=== PATIENT | male | born 1955 | race Caucasian/White ===

== ENCOUNTER 2020-08-22 12:17 | Emergency (ER) | payer SELFPAY ==
[~2020-08-22] VITALS: Ht 170 cm; Wt 100.0 kg
[~2020-08-22 12:17] MED LIST: HYDR1TAB66 PO; SULF1TAB38 PO
[2020-08-22 12:54] LABS: BASOPHILS # (AUTO) 0.1 10^3/uL (0.0-0.1); BASOPHILS % (AUTO) 1 % (0-10); EOSINOPHILS # (AUTO) 0.3 10^3/uL (0.0-0.3); EOSINOPHILS % (AUTO) 3 % (0-10); HEMATOCRIT 42 % (40-54); HEMOGLOBIN 14.7 g/dL (13.3-17.7); LYMPHOCYTES % (AUTO) 23 % (12-44); MEAN CORPUSCULAR HEMOGLOBIN 30 pg (25-34); MEAN CORPUSCULAR HGB CONC 35 g/dL (32-36); MEAN CORPUSCULAR VOLUME 87 fL (80-99); MEAN PLATELET VOLUME 10.3 fL (9.0-12.2); MONOCYTES # (AUTO) 0.5 10^3/uL (0.0-1.0); MONOCYTES % (AUTO) 6 % (0-12); NEUTROPHILS # (AUTO) 5.8 10^3/uL (1.8-7.8); NEUTROPHILS % (AUTO) 67 % (42-75); PLATELET COUNT 298 10^3/uL (130-400); WHITE BLOOD COUNT 8.8 10^3/uL (4.3-11.0)
--- NOTE | 2020-08-22 12:54 | ED Cardiac General ---
History of Present Illness General Chief Complaint: Cardiac/General Problems Stated Complaint: HIGH BP Nursing Triage Note: SENT OVER FROM URGENT CARE WITH HIGH BP. PT STATES HE HAS NOT TAKEN HIS MEDS FOR YEARS. ON THURSDAY HIS SPEECH WAS "FUNKY" SO DECIDED TO BE SEEN TODAY. DENIES CP OR SOA AT THIS TIME. Source: patient Exam Limitations: no limitations (CARLOS RICHARDS APRN) History of Present Illness Date Seen by Provider: Aug 22, 2020 Time Seen by Provider: 12:30 Initial Comments Patient is a 65-year-old male who presents to the ER via POV with complaints of high blood pressure. States that he went to the urgent care for wellness check and alterations in speech that started Thursday. He was referred to the ER due to systolic blood pressure in the 200's. States that he has had elevated blood pressure for several years and was prescribed lisinopril approximate [address] Webber. States that he never took it at that time. Verbalized that he was warned if he does not get his blood pressure under control he "would be 6ft under". States his blood pressure at that time was running 200s over 100s. States he has not been evaluated by primary care provider in several years. He currently has no complaints at this time. States that he did notice his speech seemed a bit altered "words would run on top of each other" which started Thursday, however states this is cleared up. Denies dizziness, vision changes, headache, chest pain, shortness of breath, nausea/vomiting/abdominal pain, weakness, loss of balance, slurred speech. No fever, chills, cough, no ill contacts. (CARLOS RICHARDS TABLE GAMES SUPERVISOR) Allergies and Home Medications Allergies Coded Allergies: No Known Drug Allergies (Unverified , 05/03/10) Home Medications Losartan/Hydrochlorothiazide 1 Each Tablet, 1 EACH PO DAILY Prescribed by: CARLOS RICHARDS on 08/22/20 1343 Patient Home Medication List Home Medication List Reviewed: Yes (CARLOS RICHARDS APRN) Review of Systems Review of Systems Constitutional: no symptoms reported EENTM: See HPI Respiratory: No Symptoms Reported Cardiovascular: No Symptoms Reported Gastrointestinal: No Symptoms Reported Genitourinary: No Symptoms Reported Musculoskeletal: no symptoms reported Skin: no symptoms reported Psychiatric/Neurological: No Symptoms Reported Endocrine: No Symptoms Reported Hematologic/Lymphatic: No Symptoms Reported (CARLOS RICHARDS APRN) Past Bxgvoxi-Lwrrze-Ykeute Hx Past Medical History Reproductive Disorders: No (CARLOS RICHARDS APRN) Physical Exam Vital Signs Vital Signs - First Documented 08/22/20 12:17 Temp 36.1 Pulse 83 Resp 16 B/P (MAP) 235/127 (163) Pulse Ox 96 O2 Delivery Room Air (KRISS CANTRELL MD) Vital Signs Capillary Refill : Less Than 3 Seconds (CARLOS RICHARDS APRN) Height, Weight, BMI Height: '" Weight: lbs. oz. kg; 34.00 BMI Method: General Appearance: No Apparent Distress, WD/WN HEENT: PERRL/EOMI, Normal ENT Inspection, Pharynx Normal, Moist Mucous Membranes Neck: Full Range of Motion, Normal Inspection, Non Tender, Supple; No Carotid Bruit, No JVD, No Thyromegaly Respiratory: Lungs Clear, Normal Breath Sounds, No Accessory Muscle Use, No Respiratory Distress Cardiovascular: Regular Rate, Rhythm, No Edema, No Murmur, Normal Peripheral Pulses Gastrointestinal: Normal Bowel Sounds, No Organomegaly, No Pulsatile Mass, Non Tender, Soft Extremity: Normal Inspection, Normal Range of Motion, Non Tender Neurologic/Psychiatric: Alert, Oriented x3, No Motor/Sensory Deficits, Normal Mood/Affect, central office mechanic II-XII Norm as Tested; No Aphasia, No Disoriented, No Facial Droop, No Motor Weakness, No Sensory Deficit Skin: Normal Color, Warm/Dry (CARLOS RICHARDS APRN) Progress/Results/Core Measures Results/Orders Lab Results Laboratory Tests Test 08/22/20 12:25 08/22/20 13:09 Range/Units White Blood Count 8.8 4.3-11.0 10^3/uL Red Blood Count 4.88 4.30-5.52 10^6/uL Hemoglobin 14.7 13.3-17.7 g/dL Hematocrit 42 40-54 % Mean Corpuscular Volume 87 80-99 fL Mean Corpuscular Hemoglobin 30 25-34 pg Mean Corpuscular Hemoglobin Concent 35 32-36 g/dL Red Cell Distribution Width 12.9 10.0-14.5 % Platelet Count 298 130-400 10^3/uL Mean Platelet Volume 10.3 9.0-12.2 fL Immature Granulocyte % (Auto) 0 % Neutrophils (%) (Auto) 67 42-75 % Lymphocytes (%) (Auto) 23 12-44 % Monocytes (%) (Auto) 6 0-12 % Eosinophils (%) (Auto) 3 0-10 % Basophils (%) (Auto) 1 0-10 % Neutrophils # (Auto) 5.8 1.8-7.8 10^3/uL Lymphocytes # (Auto) 2.0 1.0-4.0 10^3/uL Monocytes # (Auto) 0.5 0.0-1.0 10^3/uL Eosinophils # (Auto) 0.3 0.0-0.3 10^3/uL Basophils # (Auto) 0.1 0.0-0.1 10^3/uL Immature Granulocyte # (Auto) 0.0 0.0-0.1 10^3/uL Sodium Level 141 135-145 MMOL/L Potassium Level 3.2 L 3.6-5.0 MMOL/L Chloride Level 100 98-107 MMOL/L Carbon Dioxide Level 29 21-32 MMOL/L Anion Gap 12 5-14 MMOL/L Blood Urea Nitrogen 14 7-18 MG/DL Creatinine 1.62 H 0.60-1.30 MG/DL Estimat Glomerular Filtration Rate 43 BUN/Creatinine Ratio 9 Glucose Level 105 70-105 MG/DL Calcium Level 9.5 8.5-10.1 MG/DL Corrected Calcium 9.4 8.5-10.1 MG/DL Total Bilirubin 1.0 0.1-1.0 MG/DL Aspartate Amino Transf (AST/SGOT) 26 5-34 U/L Alanine Aminotransferase (ALT/SGPT) 25 0-55 U/L Alkaline Phosphatase 65 40-136 U/L Total Protein 7.5 6.4-8.2 GM/DL Albumin 4.1 3.2-4.5 GM/DL Triglycerides Level 151 H <150 MG/DL Cholesterol Level 200 < 200 MG/DL LDL Cholesterol Direct 153 H 1-129 MG/DL VLDL Cholesterol 30 5-40 MG/DL HDL Cholesterol 39 L 40-60 MG/DL Urine Color IVANA H Urine Clarity CLEAR Urine pH 6.0 5-9 Urine Specific [place] >=1.030 1.016-1.022 Urine Protein 2+ H NEGATIVE Urine Glucose (UA) NEGATIVE NEGATIVE Urine Ketones NEGATIVE NEGATIVE Urine Nitrite NEGATIVE NEGATIVE Urine Bilirubin NEGATIVE NEGATIVE Urine Urobilinogen 0.2 < = 1.0 MG/DL Urine Leukocyte Esterase NEGATIVE NEGATIVE Urine RBC (Auto) 3+ H NEGATIVE Urine RBC 25-50 H /HPF Urine WBC NONE /HPF Urine Crystals PRESENT H /LPF Urine Amorphous Sediment MOD ROBBIE URATES H /LPF Urine Bacteria NEGATIVE /HPF Urine Casts PRESENT /LPF Urine Hyaline Casts 0-2 H /LPF Urine Mucus SMALL H /LPF Urine Culture Indicated NO (KRISS CANTRELL MD) Medications Given in ED Current Medications Medications Dose Ordered Sig/Anel Route Start Time Stop Time Status Last Admin Dose Admin Hydralazine HCl 10 mg ONCE ONCE IV 08/22/20 13:00 08/22/20 13:01 DC 08/22/20 13:11 10 MG Hydralazine HCl 10 mg ONCE ONCE IV 08/22/20 14:15 08/22/20 14:16 DC 08/22/20 14:11 10 MG (KRISS CANTRELL MD) Vital Signs/I&O 08/22/20 08/22/20 12:17 14:30 Temp 36.1 Pulse 83 79 Resp 16 16 B/P (MAP) 235/127 (163) 183/92 Pulse Ox 96 98 O2 Delivery Room Air Room Air (KRISS CANTRELL MD) Blood Pressure Mean: 163 Progress Progress Note : Progress Note Patient examined and in no acute distress. EKG SR with no acute ST segment changes. Will obtain basic labs, non fasting lipid panel, CXR, and CT head to ev aluate for any target organ damage d/t chronically elevated blood pressure. Orders placed for Hydralazine 10mg IVP. States he use to take Lisinopril 20mg PO daily but stopped due to cough. NIH-0. No focal or gross neurological deficits identified on exam. Labs reviewed. CBC unremarkable. Chem panel shows slight elevation in creat- 1.62, no baseline available for comparison. GFR-43, (+) microscopic hematuria. Reviewed plan to have close follow up with Dr. Olea next week. Called office and staff to call patient with date/time. Patient will need additional workup and would benefit from Echocardiogram and Carotid duplex. Reviewed that he is very high risk for stroke, [place], and renal failure due to severity of hypertension. Thoroughly reviewed DASH diet/dietary modifications. Will start on Losartan/Hctz 50-12.5mg daily. He continues to deny any physical symptoms through his ED course. Blood pressure evaluated after one hour of Hydralazine 10mg IVP. BP-190/106. Will give additional dose of Hydralazine 10mg IVP and re-evaluate. Discussed starting his BP medications today. Blood pressure at time of discharge 183/92. Continued to report no physical symptoms. Reviewed discharge POC and he is agreeable with plan. All questions answered. No concerns voiced. (CARLOS RICHARDS APRN) Initial ECG Impression Date: Aug 22, 2020 Initial ECG Impression Time: 12:26 Initial ECG Rate: 80 Initial ECG Rhythm: Normal Sinus Initial ECG Intervals: Normal Initial ECG Intervals LVH Initial ECG Impression: Nonspecific Changes Initial ECG Comparisson: No Previous ECG Available (CARLOS RICHARDS APRN) Diagnostic Imaging Diagonstic Imaging: Xray Plain Films/CT/US/NM/MRI: chest [facility] [place] [place] NAME: VIR[place] TAMAYO [facility] REC#: [id number] PT STATUS: REG ER : 1955 PHYSICIAN: CARLOS RICHARDS APRN ADMIT DATE: 08/22/20/ER Draft Date of Exam:08/22/20 CHEST PA/LAT (2 VIEW) INDICATION: Elevated blood pressure. TIME OF EXAM: 1:08 PM. COMPARISON: Correlation is made with the prior chest from 04/30/2010. FINDINGS: The heart size is normal. The pulmonary vascularity is unremarkable. The lungs are clear. No infiltrate, effusion, or pneumothorax is detected. IMPRESSION: No acute cardiopulmonary process is detected. Dictated on workstation # [id number] Dict: 08/22/20 1309 Trans: 08/22/20 1311 [id number] Interpreted by: SILVIA ELLISON MD Electronically signed by: Reviewed: Reviewed by Me Diagonstic Imaging: CT Plain Films/CT/US/NM/MRI: head Comments [facility] [place], [place] NAME: RAFFAELE TAMAYONIS Alfonso [facility] REC#: [id number] PT STATUS: REG ER : 1955 PHYSICIAN: CARLOS RICHARDS APRN ADMIT DATE: 08/22/20/ER Draft Date of Exam:08/22/20 CT HEAD WO-R/O STROKE INDICATION: Altered speech, possible stroke. TECHNIQUE: Multiple contiguous axial images were obtained through the brain without the use of intravenous contrast. Auto Exposure Controls were utilized during the CT exam to meet ALARA standards for radiation dose reduction. COMPARISON: There is no prior study for comparison. FINDINGS: There are no extra-axial fluid collections. No intracranial hemorrhage. No intracranial mass or mass effect. No midline shift. The ventricles are normal in size and position. There are no acute parenchymal abnormalities in the brain. There are patchy low-density changes throughout the deep white matter, likely representing chronic ischemic change. The calvarial windows are unremarkable. IMPRESSION: No acute hemorrhage or mass effect. Chronic changes in the deep white matter, likely due to chronic ischemic changes. No definite acute finding. Dictated on workstation # [id number] Dict: 08/22/20 1321 Trans: 08/22/20 1327 [id number] Interpreted by: STAR NEFF MD Electronically signed by: Reviewed: Reviewed by Me (CARLOS RICHARDS APRN) Departure Communication (Admissions) Time/Spoke to Consulting Phy: 13:[address] Olea office to schedule close follow up next week. Office to return call for date/time of appointment. (CARLOS RICHARDS APRN) Impression Primary Impression: Hypertension Additional Impression: Microscopic hematuria Disposition: 01 HOME, SELF-CARE Condition: Improved Departure-Patient Inst. Decision time for Depature: 14:29 (CARLOS RICHARDS TABLE GAMES SUPERVISOR) Referrals: RAN OLEA MD (PCP/Family) Primary Care Physician Patient Instructions: DASH Diet, High Blood Pressure Emergencies Add. Discharge Instructions: Plan: 1. Follow up with Dr. Olea next week. Office will call you with appointment date/time. 2. Take Losartan/HCTZ for your blood pressure daily as directed. Make sure you are drinking plenty of fluids. 3. Reduce salt intake. Avoid adding salt to your foods or choosing foods with high sodium when eating out. 4. Information regarding DASH diet is provided. 5. Return to ER if you develop any chest pain, weakness in one side of the body, changes in vision or speech, or any other new or concerning symptoms. All discharge instructions reviewed with patient and/or family. Voiced understanding. Scripts Losartan/Hydrochlorothiazide (Losartan-Hctz 50-12.5 mg Tab) 1 Each Tablet 1 EACH PO DAILY for 14 Days, #14 TAB 0 Refills Prov: CARLOS RICHARDS APRN 08/22/20 ATTENDING PHYSICIAN NOTE: I was physically present as attending physician in the emergency department during the care of this patient, but I was not directly involved in the decision making or delivery of care for this patient. (KRISS CANTRELL MD) CARLOS RICHARDS APRN Aug 22, 2020 12:54 KRISS CANTRELL MD Aug 22, 2020 18:32
[2020-08-22 12:58] LABS: ALBUMIN 4.1 GM/DL (3.2-4.5); POTASSIUM 3.2 MMOL/L (3.6-5.0)
[2020-08-22 12:59] LABS: CALCIUM 9.5 MG/DL (8.5-10.1)
[2020-08-22 13:00] LABS: TOTAL PROTEIN 7.5 GM/DL (6.4-8.2)
[2020-08-22] MEDS ORDERED: hydrALAZINE (APESOLINE) 20 MG/ML VIAL IV ONE ×2 (13:00→14:15)
[2020-08-22 13:04] LABS: CREATININE SERUM 1.62 MG/DL (0.60-1.30)
--- NOTE | 2020-08-22 13:11 | Diagnostic Imaging Report ---
INDICATION: Elevated blood pressure. TIME OF EXAM: 1:08 PM. COMPARISON: Correlation is made with the prior chest from 04/30/2010. FINDINGS: The heart size is normal. The pulmonary vascularity is unremarkable. The lungs are clear. No infiltrate, effusion, or pneumothorax is detected. IMPRESSION: No acute cardiopulmonary process is detected. Dictated by: Dictated on workstation # [id number]
[2020-08-22 13:16] LABS: BILIRUBIN,URINE NEGATIVE (NEGATIVE); CLARITY,URINE CLEAR; COLOR,URINE AMBER; GLUCOSE, URINE (UA) NEGATIVE (NEGATIVE); KETONES,URINE NEGATIVE (NEGATIVE); LEUKOCYTE ESTERASE ,URINE NEGATIVE (NEGATIVE); NITRITE,URINE NEGATIVE (NEGATIVE); PROTEIN,URINE 2+ (NEGATIVE)
[2020-08-22 13:27] LABS: AMORPHOUS SEDIMENT,UR MOD AMOR URATES /LPF; BACTERIA,URINE NEGATIVE /HPF; HYALINE CASTS, URINE 0-2 /LPF; RBC,URINE 25-50 /HPF
[2020-08-22] MEDS ORDERED: LISI20TA26 PO (13:27)
--- NOTE | 2020-08-22 13:28 | Diagnostic Imaging Report ---
INDICATION: Altered speech, possible stroke. TECHNIQUE: Multiple contiguous axial images were obtained through the brain without the use of intravenous contrast. Auto Exposure Controls were utilized during the CT exam to meet ALARA standards for radiation dose reduction. COMPARISON: There is no prior study for comparison. FINDINGS: There are no extra-axial fluid collections. No intracranial hemorrhage. No intracranial mass or mass effect. No midline shift. The ventricles are normal in size and position. There are no acute parenchymal abnormalities in the brain. There are patchy low-density changes throughout the deep white matter, likely representing chronic ischemic change. The calvarial windows are unremarkable. IMPRESSION: No acute hemorrhage or mass effect. Chronic changes in the deep white matter, likely due to chronic ischemic changes. No definite acute finding. Dictated by: Dictated on workstation # [id number]
[2020-08-22] MEDS ORDERED: LOSA1TAB20 PO (13:43)
[2020-08-22 14:30] VITALS: BP 183/92
== END 2020-08-22 14:30 | disposition home or self-care (01) ==
LOC: EDUNIT# 12:17 → ER 12:19
DX: I10 Essential (primary) hypertension (principal); R31.29 Other microscopic hematuria
CPT/HCPCS: 36415; 70450; 71046; 80053; 80061; 81000; 85025; 93005; 96374; 96376

== ENCOUNTER 2021-08-19 13:40 | Emergency (ER) | payer SELFPAY ==
[~2021-08-19] VITALS: Ht 170 cm; Wt 102.0 kg
[~2021-08-19 13:40] MED LIST changes: +LISI20TA26 PO; +LOSA1TAB20 PO
[2021-08-19 14:04] LABS: BASOPHILS # (AUTO) 0.1 10^3/uL (0.0-0.1); BASOPHILS % (AUTO) 1 % (0-10); EOSINOPHILS # (AUTO) 0.2 10^3/uL (0.0-0.3); EOSINOPHILS % (AUTO) 2 % (0-10); HEMATOCRIT 43 % (40-54); HEMOGLOBIN 14.7 g/dL (13.3-17.7); LYMPHOCYTES # (AUTO) 1.8 10^3/uL (1.0-4.0); LYMPHOCYTES % (AUTO) 16 % (12-44); MEAN CORPUSCULAR HEMOGLOBIN 30 pg (25-34); MEAN CORPUSCULAR HGB CONC 34 g/dL (32-36); MEAN CORPUSCULAR VOLUME 86 fL (80-99); MEAN PLATELET VOLUME 10.1 fL (9.0-12.2); MONOCYTES # (AUTO) 0.5 10^3/uL (0.0-1.0); MONOCYTES % (AUTO) 4 % (0-12); NEUTROPHILS # (AUTO) 8.6 10^3/uL (1.8-7.8); NEUTROPHILS % (AUTO) 76 % (42-75); PLATELET COUNT 284 10^3/uL (130-400); WHITE BLOOD COUNT 11.2 10^3/uL (4.3-11.0)
[2021-08-19 14:12] LABS: ALBUMIN 4.3 GM/DL (3.2-4.5); CHLORIDE 100 MMOL/L (98-107); POTASSIUM 3.3 MMOL/L (3.6-5.0); SODIUM 141 MMOL/L (135-145)
[2021-08-19 14:14] LABS: CALCIUM 9.7 MG/DL (8.5-10.1)
[2021-08-19 14:15] LABS: GLUCOSE 131 MG/DL (70-105); TOTAL PROTEIN 7.7 GM/DL (6.4-8.2)
[2021-08-19 14:16] LABS: CARBON DIOXIDE 30 MMOL/L (21-32); FIBRIN DEGRADATION PRODUCTS 0.4 UG/ML (0.00-0.49); INR 0.9 (0.8-1.4); PROTHROMBIN TIME PATIENT 12.8 SEC (12.2-14.7)
[2021-08-19 14:17] LABS: BILIRUBIN,TOTAL 1.5 MG/DL (0.1-1.0)
[2021-08-19 14:18] LABS: ALKALINE PHOSPHATASE 76 U/L (40-136); CREATININE SERUM 1.75 MG/DL (0.60-1.30); GFR ESTIMATED 43
--- NOTE | 2021-08-19 14:18 | ED Neurological Problem ---
General Chief Complaint: Neuro-Stroke Like Symptoms Stated Complaint: POSSIBLE STROKE Nursing Triage Note: PT AMB TO RM 6 PT STATES HE MAY HAVE HAD A STROKE THIS AM. PT STATES STARTED DROOLING FROM RT SIDE OF MOUTH,AND HAS R SIDED FACIAL DROOPING. PT STATES HAS SOME DIFF W SWALLOWING. DAUGHTER STATES HAD SOME SLURRING OF WORDS EARLIER THAT IS RESOLVING Source: patient, family (DAUGHTER) History of Present Illness Date Seen by Provider: Aug 19, 2021 Time Seen by Provider: 13:58 Initial Comments PT ARRIVES VIA POV FROM HOME WITH DAUGHTER AROUND 0800 THIS AM, DAUGHTER CAME BY TO SEE HIM, AND SHE NOTED THAT PT HAD SOME DROOLING FROM RIGHT SIDE OF MOUTH AND SOME SLURRED SPEECH PT DID HAVE SOME DIFFICULTY SWALLOWING, BUT ATE/DRANK LESS THAN 1 HOUR AGO--CLAIMS HE DID NOT HAVE ANY PROBLEMS SWALLOWING AT THAT TYIME DAUGHTER NOTED THAT HE WAS STUMBLING A LITTLE BIT DAUGHTER STATES SYMPTOMS HAVE IMPROVED, BUT NOT COMPLETELY RESOLVED NO DIZZINESS OR SYNCOPE NO FALLS NO HEADACHE NO VISION CHANGES NO PARESTHESIAS NO CHEST PAIN OR PALPITATIONS NO SHORTNESS OF BREATH NO GI SYMPTOMS NO FEVER OR RECENT ILLNESS PT HAS HISTORY OF TIA ABOUT A YEAR AGO, ALSO HAS HISTORY OF HTN PT WAS PRESCRIBED [facility]AN AT THAT TIME BUT PT NEVER TOOK IT AND HAS NEVER FOLLOWED UP WITH ANYONE PCP: NONE Allergies and Home Medications Allergies Coded Allergies: No Known Drug Allergies (Unverified , 05/03/10) Patient Home Medication List Losartan/Hydrochlorothiazide (Losartan-Hctz 50-12.5 mg Tab) 1 Each Tablet, 1 EACH PO DAILY Prescribed by: CARLOS RICHARDS on 08/22/20 1343 Review of Systems Review of Systems Constitutional: no symptoms reported Eyes: No Symptoms Reported Ears, Nose, Mouth, Throat: see HPI Respiratory: no symptoms reported Cardiovascular: no symptoms reported Gastrointestinal: no symptoms reported Genitourinary: no symptoms reported Musculoskeletal: see HPI Skin: no symptoms reported Psychiatric/Neurological: See HPI Endocrine: No Symptoms Reported Hematologic/Lymphatic: No Symptoms Reported Past Nxglwqe-Nxoqym-Vyqmrk Hx Past Medical History Surgeries: Yes (04/2010-LITHOTRIPSY/CYSTOSCOPY) Renal Respiratory: No Cardiac: Yes Hypertension Neurological: Yes TIA Reproductive Disorders: No Genitourinary: No Gastrointestinal: No Musculoskeletal: No Endocrine: No HEENT: No Cancer: No Psychosocial: No Integumentary: No Blood Disorders: No Physical Exam Vital Signs Vital Signs - First Documented 08/19/21 08/19/21 08/19/21 13:40 14:31 14:34 Temp 37.1 Pulse 75 Resp 18 B/P (MAP) 207/114 (145) Pulse Ox 98 O2 Delivery Room Air FiO2 21 Capillary Refill : Less Than 3 Seconds Height, Weight, BMI Height: '" Weight: lbs. oz. kg; 35.00 BMI Method: General Appearance: WD/WN, no apparent distress HEENT: PERRL/EOMI, TMs normal, pharynx normal, other (RIGHT FACIAL DROOP. 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 SPEECH SLIGHTLY SLURRED. SLIGHT RIGHT ARM AND LEG DRIFT. GAIT IS NORMAL. NORMAL FINGER TO NOSE AND HEEL TO SHAH) Crainal Nerves: normal hearing, PERRL Coordination/Gait: normal finger to nose, normal gait Motor/Sensory: no sensory deficit, pronator drift (R), weak motor strength RLE Skin: normal color, warm/dry Stroke NIH Stroke Scale Assessment Select: Initial Level of Consciousness: 0=Alert (0), Level of Consciousness- Questions: 0=Answers both month/age (0), LOC Commands: 0=Performs both tasks (0), Visual Peterson: 0=No visual loss (0), Facial Movement (Facial Paresis): 1=Minor paralysis (1), Motor Function-Arms Right: 1=Drift (1), Motor F unction-Arms Left: 0=No drift (0), Motor Function-Legs Right: 1=Drift (1), Motor Function-Legs Left: 0=No drift (0), Limb Ataxia: 0=Absent (0), Sensory: 0=Normal:no loss (0), Best Language: 0=No aphasia (0), Dysarthria: 1=Mild to moderate loss (1), Extinction & Inattention: 0=No abnormality (0), Total: 4 Stroke Thrombolytic Exclusion Age 18 or Over: Yes Acute intenal hemorrhage: Yes History of CVA: Yes Uncontrolled Coagulation Defec: No Intracranial Hemorrhage: Yes Severe Hypertension: Yes GI or Bleed: No Subarachnoid Hemorrhage: No Intracranial Neoplasm/Aneurysm: No Oral Anticoagulants: No Surgery or Trauma: No Puncture of Non-Compressible V: No Recent CPR: No Diabetic Hemorrhagic Retinopat: No Organ Biopsy: No Recent Obstetric Delivery: No Glucose: No Significant Hepatic Dysfunctio: No NIH Stoke Scale >22: No Bacterial Endocarditis: No Pericarditis: No Improving Symptoms: Yes Platelets: No TPA Contraindication: Yes IV - TPa Received IV - TPa Procedure Performed?: No (ONSET IS UNKNOWN AND PT HAS INTRACRANIAL HEMORRHAGE ) Progress/Results/Core Measures Results/Orders Lab Results Laboratory Tests Test 08/19/21 13:53 08/19/21 14:29 Range/Units White Blood Count 11.2 H 4.3-11.0 10^3/uL Red Blood Count 4.99 4.30-5.52 10^6/uL Hemoglobin 14.7 13.3-17.7 g/dL Hematocrit 43 40-54 % Mean Corpuscular Volume 86 80-99 fL Mean Corpuscular Hemoglobin 30 25-34 pg Mean Corpuscular Hemoglobin Concent 34 32-36 g/dL Red Cell Distribution Width 13.2 10.0-14.5 % Platelet Count 284 130-400 10^3/uL Mean Platelet Volume 10.1 9.0-12.2 fL Immature Granulocyte % (Auto) 0 % Neutrophils (%) (Auto) 76 H 42-75 % Lymphocytes (%) (Auto) 16 12-44 % Monocytes (%) (Auto) 4 0-12 % Eosinophils (%) (Auto) 2 0-10 % Basophils (%) (Auto) 1 0-10 % Neutrophils # (Auto) 8.6 H 1.8-7.8 10^3/uL Lymphocytes # (Auto) 1.8 1.0-4.0 10^3/uL Monocytes # (Auto) 0.5 0.0-1.0 10^3/uL Eosinophils # (Auto) 0.2 0.0-0.3 10^3/uL Basophils # (Auto) 0.1 0.0-0.1 10^3/uL Immature Granulocyte # (Auto) 0.1 0.0-0.1 10^3/uL Prothrombin Time 12.8 12.2-14.7 SEC INR Comment 0.9 0.8-1.4 Activated Partial Thromboplast Time 29 24-35 SEC D-Dimer 0.40 0.00-0.49 UG/ML Sodium Level 141 135-145 MMOL/L Potassium Level 3.3 L 3.6-5.0 MMOL/L Chloride Level 100 98-107 MMOL/L Carbon Dioxide Level 30 21-32 MMOL/L Anion Gap 11 5-14 MMOL/L Blood Urea Nitrogen 11 7-18 MG/DL Creatinine 1.75 H 0.60-1.30 MG/DL Estimat Glomerular Filtration Rate 43 BUN/Creatinine Ratio 6 Glucose Level 131 H 70-105 MG/DL Glucometer 129 H 70-110 MG/DL Calcium Level 9.7 8.5-10.1 MG/DL Corrected Calcium 9.5 8.5-10.1 MG/DL Total Bilirubin 1.5 H 0.1-1.0 MG/DL Aspartate Amino Transf (AST/SGOT) 18 5-34 U/L Alanine Aminotransferase (ALT/SGPT) 15 0-55 U/L Alkaline Phosphatase 76 40-136 U/L Troponin I < 0.028 <0.028 NG/ML Total Protein 7.7 6.4-8.2 GM/DL Albumin 4.3 3.2-4.5 GM/DL My Orders Orders - DINA MCNEILL DO Cbc With Automated Diff (08/19/21 13:58) Protime With Inr (08/19/21 13:58) Partial Thromboplastin Time (08/19/21 13:58) Comprehensive Metabolic Panel (08/19/21 13:58) Fibrin Degradation Products (08/19/21 13:58) Troponin I Kal[place] (08/19/21 13:58) Ua Culture If Indicated (08/19/21 13:58) Chest 1 View, Ap/Pa Only (08/19/21 13:58) Ekg Tracing (08/19/21 13:58) Nothing By Mouth (08/19/21 Lunch) Accucheck Stat ONCE (08/19/21 13:58) Ed Iv/Invasive Line Start (08/19/21 13:58) Ed Iv/Invasive Line Start (08/19/21 13:58) Vital Signs Stroke Patient Q15M (08/19/21 13:58) Ct Head Wo-R/O Stroke (08/19/21 13:58) O2 (08/19/21 13:58) Intake & Output 06,14,22 (08/19/21 13:58) Monitor-Rhythm Ecg Trace Only (08/19/21 13:58) Dysphagia Screening Tool [id number] (08/19/21 13:58) Lipid Panel (08/20/21 06:00) Labetalol Injection (Normodyne Injection (08/19/21 14:45) Vital Signs/I&O 08/19/21 08/19/21 08/19/21 08/19/21 13:40 14:30 14:31 14:34 Temp 37.1 Pulse 75 80 80 Resp 18 12 12 B/P (MAP) 207/114 (145) 240/126 221/121 Pulse Ox 98 96 95 95 O2 Delivery Room Air Room Air FiO2 21 Blood Pressure Mean: 145 Progress Progress Note : Progress Note STROKE ACTIVATION INITIATED. GIVEN LABETALOL FOR HTN Initial ECG Impression Date: Aug 19, 2021 Initial ECG Impression Time: 14:05 Initial ECG Rate: 79 Initial ECG Rhythm: Normal Sinus (IVCD) Initial ECG Impression: Nonspecific Changes Diagnostic Imaging Comments CT HEAD--INTRACRANIAL BLEED IN BASAL GANGLIA, 17 MM DIAMETER. NO MIDLINE SHIFT. TYPICAL APPEARANCE OF HYPERTENSIVE HEMORRHAGE. PER RADIOLOGIST VIA PHONE AT 1444, AND PER DICTATED REPORT AT 1456 COMPARISON: Correlation is made with prior head CT from 08/22/2020. FINDINGS: Patient has developed an area of hyperdensity in the left basal ganglia measuring 17 mm in size consistent with acute intraparenchymal hematoma. No other areas of hemorrhage are detected. Ventricular size is stable. Patchy areas of low attenuation in the periventricular and subcortical white matter is noted consistent with chronic microvascular ischemia. There is no midline shift. No sulcal effacement is seen. IMPRESSION: 1. Acute intraparenchymal hematoma in the left basal ganglia, perhaps hypertensive bleed. No extra-axial hemorrhage is detected. 2. Findings of chronic microvascular ischemia. CXR--PER RADIOLOGIST REPORT AT 1456 Findings: Lungs are clear. No failure, effusion or pneumothorax. Impression: No acute-appearing abnormality. Reviewed: Reviewed by Me, Discussed w/Radiologist Departure Communication (Admissions) 1445--CALLED [facility], AND [facility]. THEY WILL CALL BACK. 1457--SPOKE WITH DR. BRANDON, NEUROSURGEON, ADVISES TO TRANSFER TO ER, AND SHE WILL SEE PT IN CONSULT/ADMIT TO HOSPITALIST. 1500--SPOKE WITH DR. LARRY GRIFFITHS, ER PHYSICIAN. ACCEPTS PT FOR TRANSFER. ER STAFF CONTACTING [facility] FOR TRANSPORT, WILL SEND BY AIR IF NO GROUND TRANSPORT AVAILABLE Impression Primary Impression: Hemorrhagic stroke Additional Impressions: MALIGNANT HTN Non-compliance Disposition: XFER SHT-TRM HOSP Condition: Stable/Unchanged Transfer Transfer Reason: Exceeds level of care (NEUROLOGY AND NEUROSURGERY ) [facility] MD Departure-Patient Inst. Referrals: NO,LOCAL PHYSICIAN (PCP/Family) Primary Care Physician DINA MCNEILL DO Aug 19, 2021 14:18
[2021-08-19 14:19] LABS: BUN/CREATININE RATIO 6
[2021-08-19 14:21] LABS: ALANINE AMINOTRANSFERASE 15 U/L (0-55)
--- NOTE | 2021-08-19 14:28 | Diagnostic Imaging Report ---
Indication: Drooling, facial droop. Findings: Lungs are clear. No failure, effusion or pneumothorax. Impression: No acute-appearing abnormality. Dictated by: Dictated on workstation # [id number]
[2021-08-19 14:30] VITALS: BP 240/126
[2021-08-19 14:37] LABS: BILIRUBIN,URINE NEGATIVE (NEGATIVE); CLARITY,URINE CLEAR; COLOR,URINE YELLOW; GLUCOSE, URINE (UA) NEGATIVE (NEGATIVE); KETONES,URINE NEGATIVE (NEGATIVE); LEUKOCYTE ESTERASE ,URINE NEGATIVE (NEGATIVE); NITRITE,URINE NEGATIVE (NEGATIVE); PROTEIN,URINE 1+ (NEGATIVE)
[2021-08-19] MEDS ORDERED: LABETALOL HCL 20 MG/4 ML VIAL IV ONE ×2 (14:45→15:15)
--- NOTE | 2021-08-19 14:52 | Diagnostic Imaging Report ---
PROCEDURE: CT head wo r/o stroke. TECHNIQUE: Multiple contiguous axial images were obtained through the brain without the use of intravenous contrast. Auto Exposure Controls were utilized during the CT exam to meet ALARA standards for radiation dose reduction. INDICATION: Right facial drooping. COMPARISON: Correlation is made with prior head CT from 08/22/2020. FINDINGS: Patient has developed an area of hyperdensity in the left basal ganglia measuring 17 mm in size consistent with acute intraparenchymal hematoma. No other areas of hemorrhage are detected. Ventricular size is stable. Patchy areas of low attenuation in the periventricular and subcortical white matter is noted consistent with chronic microvascular ischemia. There is no midline shift. No sulcal effacement is seen. IMPRESSION: 1. Acute intraparenchymal hematoma in the left basal ganglia, perhaps hypertensive bleed. No extra-axial hemorrhage is detected. 2. Findings of chronic microvascular ischemia. Results were discussed with Dr. Foley of the emergency department prior to this dictation. Dictated by: Dictated on workstation # [id number]
[2021-08-19 14:54] LABS: BACTERIA,URINE TRACE /HPF; RBC,URINE 0-2 /HPF
[2021-08-19 14:55] LABS: SQUAMOUS EPITHELIAL CELL,UR RARE /HPF
[2021-08-19 16:43] VITALS: BP 188/113
== END 2021-08-19 16:26 | disposition short-term general hospital (02) ==
LOC: EDUNIT# 13:43 → ER 13:44
DX: I62.9 Nontraumatic intracranial hemorrhage, unspecified (principal); I10 Essential (primary) hypertension; T46.5X6A Underdosing of other antihypertensive drugs, initial encounter; R29.704 NIHSS score 4; Z91.14 Patient's other noncompliance with medication regimen; Z86.73 Personal history of transient ischemic attack (TIA), and cerebral infarction without residual deficits; Z79.899 Other long term (current) drug therapy
CPT/HCPCS: 36415; 70450; 71045; 80053; 81000; 82947; 84484; 85025; 85379; 85610; 85730; 93005; 99291